=== PATIENT | male | born 1985 | race Caucasian/White ===

== ENCOUNTER → 2017-11-29 | Outpatient (CLI) | payer SELFPAY | END | disposition home or self-care (01) | LOC: LAB DAV 11:55 | DX: N18.6 End stage renal disease (principal) | CPT/HCPCS: 84132 ==

== ENCOUNTER 2022-02-02 07:42 | Inpatient (IN) | payer MEDICARE, OTHER ==
[~2022-02-02] VITALS: Ht 193 cm; Wt 151.1 kg
[2022-02-02 08:34] LABS: BASOPHILS ABSOLUTE AUTO 0.07 K/mm3 (0.00-0.23); BASOPHILS PERCENT AUTO 0 % (0-2); EOSINOPHILS ABSOLUTE AUTO 0.22 K/mm3 (0.00-0.68); EOSINOPHILS PERCENT AUTO 1 % (0-6); Hematocrit 45.9 % (37.0-53.0); Hemoglobin 14.7 g/dL (13.5-17.5); IMMATURE GRAN ABSOLUTE AUTO 0.19 K/mm3 (0.00-0.10); IMMATURE GRAN PERCENT AUTO 1 % (0-1); LYMPHOCYTES ABSOLUTE AUTO 0.44 K/mm3 (0.84-5.20); LYMPHOCYTES PERCENT AUTO 2 % (21-46); MONOCYTES PERCENT AUTO 10 % (4-13); Mean Corpuscular HGB 27.9 pg (26.0-34.0); Mean Corpuscular Volume 87 fL (80-100); Mean Platelet Volume 10.2 fL (9.1-12.4); NEUTROPHILS PERCENT AUTO 85 % (41-73); Platelet Count 367 K/mm3 (150-400); RDW Coefficient Variation 12.7 % (11.7-14.2); RDW Standard Deviation 40.7 fL (35.1-46.3); Red Blood Cell Count 5.26 M/mm3 (4.30-5.90); White Blood Cell Count 19.42 K/mm3 (4.00-11.30)
[2022-02-02] MEDS ORDERED: TACROLIMUS PO (08:43)
[2022-02-02] MEDS ORDERED: CARVEDILOL12.5 MG PO (08:43)
[2022-02-02] MEDS ORDERED: PRED5 PO (08:45)
[2022-02-02] MEDS ORDERED: MYCO250 PO (08:45)
[2022-02-02] MEDS ORDERED: LOSARTAN POTASS25 M2 PO (08:46)
[2022-02-02 08:51] LABS: Albumin, Blood 3.1 g/dL (3.4-5.0); Albumin/Globulin Ratio 0.6 (0.8-1.8); Bilirubin, Total 0.6 mg/dL (0.1-1.0); Bun/Creatinine Ratio 14.9 (12.0-20.0); Calcium, Blood 10.3 mg/dL (8.5-10.1); Creatinine, Blood 1.74 mg/dL (0.60-1.20); Globulin, Blood 4.8 g/dL (2.2-4.0); Potassium, Blood 4.7 mmol/L (3.5-5.5); Total Protein, Blood 7.9 g/dL (6.4-8.2)
[2022-02-02 09:37] LABS: Influenza A, PCR NEGATIVE (NEGATIVE); Influenza B, PCR NEGATIVE (NEGATIVE); Resp Syncytial Virus, PCR NEGATIVE (NEGATIVE)
[2022-02-02 10:13] LABS: SARS-Cov-2 (COVID-19) PCR, MMC POSITIVE (NEGATIVE)
--- NOTE | 2022-02-02 16:44 | NUR ---
SHIFT SUMMARY MR OSHEA WAS ADMITTED FROM THE EMERGENCY DEPARTMENT NEWLY DIAGNOSED WITH COVID PNA. HE STOOD AND TRANSFERED INTO BED WITH STEADY GAIT. ON 3L NC O2 FROM ER. HE DOES HAVE A COUGH AND SAID HE'S BEEN EXPECTORATING SOME CLEAR MUCUS. EXP WHEEZES HEARD. SEEN BY JOAN ELIAS. RIGHT KIDNEY TRANSPLANT WAS 1 YEAR AGO. PT HAS LEFT ARM FISTULA WITH STRONG BRUIT/THRILL. LR 1L IVF INFUSING NOW TO PIV R A/C. HE DENIES PAIN. HE SAID THAT HIS TACROL LEVEL IS OVERDUE WHEN HE GOT IT DRAWN LAST TIME HE HAD ALREADY TAKEN HIS TACROL. MR OSHEA HAS NO NAUSEA AND TOLERATED A HALF SANDWICH AND A DRINK FOR LUNCH, HE SAID HE'S ALREADY STARTING TO FEEL A LOT BETTER. [facility] CASTAÑEDA'S OFFICE TO INFORM OF ADMISSION. BED LOW, CALL LIGHT IN REACH.
--- NOTE | 2022-02-03 04:10 | NUR ---
FITTER PLACER SUMMARY NO ACUTE CHANGES. PT AWAKE INTERMITTANTLY T/O THE NIGHT; REPORTS INSOMNIA. PT ON 3L O2 VIA NC; SATURATION CONSISITANLY >90%; PT IS COUGHING UP THIN CLEAR LIQUIDS. PT ON CONTINUOUS PULSE OX. PT HAVING LONG PERIODS TAHCYCARDIA 100-114 DURING THE FIRST HALF OF SHIFT; THEN CONSISTANTLY IN THE 80-90'S (AFTER FLUIDS FINISHED INFUSING). PT INDEPENDENT IN THE ROOM. CALL LIGHT IN REACH.
[2022-02-03 05:40] LABS: Hematocrit 44.8 % (37.0-53.0); Hemoglobin 14.1 g/dL (13.5-17.5); Mean Corpuscular HGB 27.8 pg (26.0-34.0); Mean Corpuscular HGB Conc 31.5 g/dL (31.5-36.5); Mean Corpuscular Volume 88 fL (80-100); Mean Platelet Volume 10.8 fL (9.1-12.4); Platelet Count 294 K/mm3 (150-400); RDW Coefficient Variation 12.8 % (11.7-14.2); RDW Standard Deviation 41.4 fL (35.1-46.3); Red Blood Cell Count 5.07 M/mm3 (4.30-5.90); White Blood Cell Count 15.05 K/mm3 (4.00-11.30)
[2022-02-03 06:10] LABS: Albumin, Blood 2.7 g/dL (3.4-5.0); Anion Gap 6 mmol/L (6-16); Blood Urea Nitrogen 34 mg/dL (8-24); Bun/Creatinine Ratio 20.2 (12.0-20.0); CO2, Blood 25 mmol/L (21-32); Calcium, Blood 10.9 mg/dL (8.5-10.1); Chloride, Blood 110 mmol/L (98-108); Creatinine, Blood 1.68 mg/dL (0.60-1.20); Glomerular Filtration Rate 54 (60-); Glucose, Blood 171 mg/dL (70-99); Magnesium, Blood 1.9 mg/dL (1.6-2.4); Phosphorus, Blood 3.1 mg/dL (2.5-4.9); Sodium, Blood 141 mmol/L (136-145)
--- NOTE | 2022-02-03 12:33 | NUR ---
AM NOTE MR OSHEA C/O 07/20 HEADACHE THIS MORNING THAT HE IS ASSOCIATING WITH COVID SYMPTOMS. HE HAS DECLINED TYLENOL. ON CONT PULSE OX, SAT IN THE 90S ON 3LNC, BUT DOES GET SOB ON EXERTION. PRODUCTIVE COUGH WITH CLEAR PHLEGM. UP TO SHOWER THIS AM.
--- NOTE | 2022-02-03 16:46 | NUR ---
SHIFT SUMMARY SEE AM NOTE. MR OSHEA HAS BEEN UP INDEPENDENTLY IN HIS ROOM, AND HAS BEEN NAPPING THIS AFTERNOON. REMAINS ON 3L NC O2, SATS IN THE 90S ON CONT PULSE OXIMETER. SOB ON EXERTION. + PRODUCTIVE COUGH. POOR APPETITE AT LUNCH TIME BUT NO C/O NAUSEA. FOOD REQUEST ENTERED FOR SUPPER. HEART RATE HIGH 80S AND 90S OBSERVED ON VIOXX. BED LOW, CALL LIGHT IN REACH.
--- NOTE | 2022-02-04 03:41 | NUR ---
SKIP LOAD DRIVER SUMMARY NO ACUTE CHANGES. PT ON 3L O2/NC. NOTED COARSE LUNG SOUNDS/WEEZE T/O ALL AGUILAR. PT IS COUGHING W/SCANT SPUTUM. NOTED TACHYPNEA/DYSON W/MINIMAL ACTIVITY. PT IS INDEPENDENT IN ROOM. PT REPORTS INCREASED APPETITE THIS EVENING AND REPORTS FEELING BETTER. PT ABLE TO ADVOCATE FOR NEEDS. CALL LIGHT IN REACH.
[2022-02-04 04:51] LABS: BASOPHILS ABSOLUTE AUTO 0.05 K/mm3 (0.00-0.23); BASOPHILS PERCENT AUTO 0 % (0-2); EOSINOPHILS ABSOLUTE AUTO 0.06 K/mm3 (0.00-0.68); EOSINOPHILS PERCENT AUTO 0 % (0-6); Hematocrit 43.7 % (37.0-53.0); Hemoglobin 13.5 g/dL (13.5-17.5); IMMATURE GRAN ABSOLUTE AUTO 0.26 K/mm3 (0.00-0.10); IMMATURE GRAN PERCENT AUTO 1 % (0-1); LYMPHOCYTES ABSOLUTE AUTO 0.25 K/mm3 (0.84-5.20); LYMPHOCYTES PERCENT AUTO 1 % (21-46); MONOCYTES ABSOLUTE AUTO 1.75 K/mm3 (0.16-1.47); MONOCYTES PERCENT AUTO 9 % (4-13); Mean Corpuscular HGB 27.8 pg (26.0-34.0); Mean Corpuscular HGB Conc 30.9 g/dL (31.5-36.5); Mean Corpuscular Volume 90 fL (80-100); Mean Platelet Volume 10.3 fL (9.1-12.4); NEUTROPHILS ABSOLUTE AUTO 18.11 K/mm3 (1.96-9.15); NEUTROPHILS PERCENT AUTO 89 % (41-73); Platelet Count 318 K/mm3 (150-400); RDW Coefficient Variation 12.8 % (11.7-14.2); RDW Standard Deviation 42.1 fL (35.1-46.3); Red Blood Cell Count 4.85 M/mm3 (4.30-5.90); White Blood Cell Count 20.48 K/mm3 (4.00-11.30)
[2022-02-04 05:14] LABS: Albumin, Blood 2.6 g/dL (3.4-5.0); Anion Gap 4 mmol/L (6-16); Blood Urea Nitrogen 36 mg/dL (8-24); Bun/Creatinine Ratio 23.5 (12.0-20.0); CO2, Blood 25 mmol/L (21-32); Calcium, Blood 10.6 mg/dL (8.5-10.1); Chloride, Blood 110 mmol/L (98-108); Creatinine, Blood 1.53 mg/dL (0.60-1.20); Glomerular Filtration Rate 60 (60-); Glucose, Blood 151 mg/dL (70-99); Phosphorus, Blood 2.5 mg/dL (2.5-4.9); Potassium, Blood 4.7 mmol/L (3.5-5.5); Sodium, Blood 139 mmol/L (136-145)
--- NOTE | 2022-02-04 08:45 | NUR ---
RN NOTE PT HAS AUDITORY INSP/EXP WHEEZES. STILL HAS COUGH, SAID IT'S NOT WORSE. RESP RATE MID 20S. RT CALLED, MESSAGE LEFT. PT TALKING IN FULL SENTENCE. O2 SAT IN THE 90S ON 3L NC. HE SAID HE GETS SOB WITH ACTIVITY OR LYING FLAT.
--- NOTE | 2022-02-04 16:58 | NUR ---
SHIFT SUMMARY MR OSHEA HAS A STRONG MOIST COUGH, EXPECTORATING CLEAR BUBBLY SPUTUM. GIVEN SPECIMEN CUP FOR SPUTUM SAMPLE. HE SAID HE FEELS "ABOUT THE SAME". HE GETS SOB ON EXERTION. HE IS MOVING ABOUT IN HIS ROOM AND TO THE BATHROOM. NO C/O PAIN. IV ANTIBIOTICS PER JUL.
--- NOTE | 2022-02-05 03:51 | NUR ---
OFFICE MACHINE INSTALLER SUMMARY NO ACUTE CHANGES. PT IS ON 3L O2 NC; SATURATIONS STAYING ABOVE 90%. CONTINUING TO EXPERIENCE EPISODED OF TACHYPNEA AND TACHYCARDIA. REPORTS FEELING LIKE HE CAN NOT TAKE A DEEP BREATH INTO THE BASES OF LUNGS. PROVIDED INCETIVE SPIROMETER AND EDUCATION FOR USE. CONTINUING TO HAVE WATERY/FROTHY CLEAR SPUTUM; CUP IS AT BEDSIDE FOR SPUTUM CULTURE. CALL LIGHT IN REACH.
[2022-02-05 05:17] LABS: BASOPHILS ABSOLUTE AUTO 0.04 K/mm3 (0.00-0.23); BASOPHILS PERCENT AUTO 0 % (0-2); EOSINOPHILS ABSOLUTE AUTO 0.13 K/mm3 (0.00-0.68); EOSINOPHILS PERCENT AUTO 1 % (0-6); Hematocrit 44.6 % (37.0-53.0); Hemoglobin 13.5 g/dL (13.5-17.5); IMMATURE GRAN ABSOLUTE AUTO 0.45 K/mm3 (0.00-0.10); IMMATURE GRAN PERCENT AUTO 3 % (0-1); LYMPHOCYTES ABSOLUTE AUTO 0.31 K/mm3 (0.84-5.20); LYMPHOCYTES PERCENT AUTO 2 % (21-46); MONOCYTES ABSOLUTE AUTO 1.34 K/mm3 (0.16-1.47); MONOCYTES PERCENT AUTO 8 % (4-13); Mean Corpuscular HGB 27.3 pg (26.0-34.0); Mean Corpuscular HGB Conc 30.3 g/dL (31.5-36.5); Mean Corpuscular Volume 90 fL (80-100); Mean Platelet Volume 10.6 fL (9.1-12.4); NEUTROPHILS ABSOLUTE AUTO 14.61 K/mm3 (1.96-9.15); NEUTROPHILS PERCENT AUTO 87 % (41-73); Platelet Count 336 K/mm3 (150-400); RDW Coefficient Variation 12.8 % (11.7-14.2); RDW Standard Deviation 41.8 fL (35.1-46.3); Red Blood Cell Count 4.95 M/mm3 (4.30-5.90); White Blood Cell Count 16.88 K/mm3 (4.00-11.30)
[2022-02-05 05:44] LABS: Albumin, Blood 2.5 g/dL (3.4-5.0); Anion Gap 6 mmol/L (6-16); Blood Urea Nitrogen 31 mg/dL (8-24); Bun/Creatinine Ratio 20.3 (12.0-20.0); CO2, Blood 26 mmol/L (21-32); Calcium, Blood 10.2 mg/dL (8.5-10.1); Chloride, Blood 109 mmol/L (98-108); Creatinine, Blood 1.53 mg/dL (0.60-1.20); Glomerular Filtration Rate 60 (60-); Glucose, Blood 192 mg/dL (70-99); Phosphorus, Blood 3.2 mg/dL (2.5-4.9); Potassium, Blood 4.8 mmol/L (3.5-5.5); Sodium, Blood 141 mmol/L (136-145)
--- NOTE | 2022-02-05 18:06 | NUR ---
SHIFT SUMMARY: PT A&O, PLEASANT AND COOPERATIVE. PT WALKING IN THE ROOM INDEPENDANTLY AND REPOSTIONING OFTEN. PT SEEN BY DR. JORDAN WITH A NEW ORDER OF REMDESIVIR IV. PT HAD NO COMPLAINTS OF PAIN OR DISCOMFORT. PT IS SCHEDULED FOR XRAYS 02/06/22. PT IN BED WITH CALL LIGHT WITHIN REACH.
--- NOTE | 2022-02-05 18:32 | NUR ---
THIS DRY FOOD PRODUCTS MIXER HAS REVIEWED ALL NOTES AND ASSESSMENTS BY ANNE MARIE NOLEN AND AGREES WITH THEM.
--- NOTE | 2022-02-06 04:38 | NUR ---
SHIFT SUMMARY PATIENT DENIES PAIN AND NAUSEA. PATIENT REPORTS SHORTNESS OF BREATH WITH ACTIVITY. PATIENT ON 2L VIA N/C. PAITENT MAINTAINING SATS ABOVE 90%. PATIENT HAS SNACK BEFORE BED. EATING AND DRINKING WELL. PATIENT SLEPT ON AND OFF THIS SHIFT. CHEST XRAY ORDERED FOR THIS MORNING. PATIENT IS IND IN ROOM. PATIENT IS PLEASANT AND COOPERATIVE WITH CARE.
[2022-02-06 06:45] LABS: Hematocrit 45.6 % (37.0-53.0); Hemoglobin 14.2 g/dL (13.5-17.5); Mean Corpuscular HGB 27.8 pg (26.0-34.0); Mean Corpuscular HGB Conc 31.1 g/dL (31.5-36.5); Mean Corpuscular Volume 89 fL (80-100); Mean Platelet Volume 10.4 fL (9.1-12.4); Platelet Count 327 K/mm3 (150-400); RDW Coefficient Variation 12.5 % (11.7-14.2); White Blood Cell Count 13.87 K/mm3 (4.00-11.30)
[2022-02-06 07:11] LABS: Albumin, Blood 2.5 g/dL (3.4-5.0); Anion Gap 6 mmol/L (6-16); Blood Urea Nitrogen 34 mg/dL (8-24); Bun/Creatinine Ratio 22.2 (12.0-20.0); CO2, Blood 27 mmol/L (21-32); Calcium, Blood 10.3 mg/dL (8.5-10.1); Chloride, Blood 108 mmol/L (98-108); Creatinine, Blood 1.53 mg/dL (0.60-1.20); Glomerular Filtration Rate 60 (60-); Glucose, Blood 130 mg/dL (70-99); Phosphorus, Blood 3.3 mg/dL (2.5-4.9); Potassium, Blood 4.5 mmol/L (3.5-5.5); Sodium, Blood 141 mmol/L (136-145)
[2022-02-06 07:36] LABS: BAND PERCENT MAN 4 % (0-8); BASOPHILS PERCENT MAN 0 % (0-2); EOSINOPHILS PERCENT MAN 0 % (0-6); LYMPHOCYTES ABSOLUTE MAN 0.55 K/mm3 (0.84-5.20); LYMPHOCYTES PERCENT MAN 4 % (21-46); METAMYELOCYTE ABSOLUTE MAN 0.27 K/mm3 (0.00-0.00); METAMYELOCYTE PERCENT MAN 2 % (0-0); MONOCYTES PERCENT MAN 8 % (4-13); NEUTROPHILS ABSOLUTE MAN 11.92 K/mm3 (1.96-9.15); SEG NEUTROPHILS PERCENT MAN 82 % (41-73); TOTAL CELLS COUNTED 100
--- NOTE | 2022-02-06 13:20 | NUR ---
NURSE NOTE: PT O2 TITRATED DOWN TO 1L NC O2 STABLE AT 95%.
--- NOTE | 2022-02-06 18:12 | NUR ---
SHIFT SUMMARY: PT A&O, PLEASANT AND COOPERATIVE. PT HAS HAD NO COMPLAINTS OF SOB, CHEST PAIN, OR DISCOMFORT. PT TIRATED DOWN TO ROOM AIR WITH STABLE O2 SATS 94%. PT HAS ORDERS FOR HOME O2 EVALUATION ONCE PT O2 LEVELS STABLE AT RA. PT IN BED WTH CALL LIGHT WITHIN REACH.
--- NOTE | 2022-02-06 18:25 | NUR ---
THIS STORES LABORER HAS REVIEWED ALL NOTES AND ASSESSMENTS BY ANNE MARIE NOLEN AND AGREES WITH THEM.
--- NOTE | 2022-02-07 05:30 | NUR ---
SHIFT SUMMARY PATIENT DENIES PAIN, NAUSEA, AND SHORTNESS OF BREATH AT REST. REPORTS SOME SHORTNESS OF BREATH WITH ACTIVITY. PATIENT ON RA ENTIRE SHIFT, MAINTAINING SATS ABOVE 90%. PATIENT IS IND IN ROOM. PATIENT IS EAGER TO GO HOME. PATIENT HAD A SNACK BEFORE BED, EATING AND DRINKING WELL. PATIENT IS PLEASANT AND COOPERATIVE WITH CARE.
[2022-02-07] MEDS ORDERED: DECADRON6 M1 PO (13:32)
[2022-02-07] MEDS ORDERED: ACET325 PO (13:33)
--- NOTE | 2022-02-07 15:40 | NUR ---
DISCHARGE INSTRUCTIONS COMPLETED AND DISCUSSED WITH PT EXPRESSING UNDERSTANDING. SCRIPT FAXED TO [facility]. FAXED INFO TO [facility] FOR CHEST CT. TO [facility] VIA W/C AND DRIVING HIMSELF HOME.
== END 2022-02-07 14:20 | disposition home or self-care (01) | DRG 871 ==
LOC: ER 07:42 → MEDS 10:17
PROVIDERS: Emergency Medicine; Family Medicine; ADMIT Internal Medicine
PROC: 8E0ZXY6 Isolation (ICD-10-PCS; principal; 2022-02-02)
PROC: 3E03329 Introduction of Other Anti-infective into Peripheral Vein, Percutaneous Approach (ICD-10-PCS; 2022-02-02)
PROC: 3E0DX3Z Introduction of Anti-inflammatory into Mouth and Pharynx, External Approach (ICD-10-PCS; 2022-02-03)
PROC: XW033E5 Introduction of Remdesivir Anti-infective into Peripheral Vein, Percutaneous Approach, New Technology Group 5 (ICD-10-PCS; 2022-02-05)
DX: A41.9 Sepsis, unspecified organism (principal); J18.9 Pneumonia, unspecified organism; J96.01 Acute respiratory failure with hypoxia; U07.1 COVID-19; T86.12 Kidney transplant failure; R65.20 Severe sepsis without septic shock; Z79.899 Other long term (current) drug therapy; N18.30 Chronic kidney disease, stage 3 unspecified; D72.828 Other elevated white blood cell count; E88.09 Other disorders of plasma-protein metabolism, not elsewhere classified; E83.52 Hypercalcemia
CPT/HCPCS: 0241U; 36415; 71045; 80053; 80069; 83605; 83735; 83880; 84145; 84484; 85025; 85027; 87040; 93005; 93010; 94640; 94664; 94760; 94761; 94762; 96365; 96366; 96367; 96375; 99285-25; A9270; J0248; J0456; J0692; J0696; J1650; J2930; J7030; J7050; J7120; J7507; J7517

== ENCOUNTER 2023-11-28 09:58 | Emergency (ER) | payer OTHER ==
[~2023-11-28] VITALS: Ht 193 cm; Wt 140.6 kg
[~2023-11-28 09:58] MED LIST: ACET325 PO; CARVEDILOL12.5 MG PO; DECADRON6 M1 PO; LOSARTAN POTASS25 M2 PO; MYCO250 PO; PRED5 PO; TACROLIMUS PO
[2023-11-28 10:09] VITALS: BP 154/101
[2023-11-28] MEDS ORDERED: Dexamethasone Sod Phos 10 MG/ML 1ML VIAL PO ONE (11:05)
[2023-11-28] MEDS ORDERED: Amoxicillin500 MG PO (11:05)
[2023-11-28] MEDS ORDERED: Amoxicillin 500 MG Cap PO ONE (11:05)
== END 2023-11-28 11:25 | disposition home or self-care (01) ==
LOC: ER 09:58
DX: K04.7 Periapical abscess without sinus (principal); Z79.52 Long term (current) use of systemic steroids; Z79.899 Other long term (current) drug therapy
CPT/HCPCS: 99282; A9270; J1100

== ENCOUNTER 2025-04-06 14:25 | Inpatient (IN) | payer OTHER ==
[~2025-04-06] VITALS: Ht 193 cm; Wt 162.6 kg
[~2025-04-06 14:25] MED LIST changes: +Amoxicillin500 MG PO
[2025-04-06 15:28] LABS: Source, Urine Clean Catch
[2025-04-06 15:39] LABS: Influenza A, PCR NEGATIVE (NEGATIVE); Influenza B, PCR NEGATIVE (NEGATIVE); Resp Syncytial Virus, PCR NEGATIVE (NEGATIVE); SARS-Cov-2 (COVID-19) PCR, MMC NEGATIVE (NEGATIVE)
[2025-04-06 15:40] LABS: Bilirubin, Urine Neg (Neg); Color, Urine Yellow (P-Yellow); Glucose Qualitative, Urine Neg (Neg); Ketones, Urine Neg (Neg); Leukocyte Esterase, Urine 3+ (Neg); Protein, Urine 3+ (Neg); Specific Gravity, Urine 1.010 (1.003-1.022); Urobilinogen, Urine NORM (Normal)
[2025-04-06 15:53] LABS: Red Blood Cells, Urine 25-50 /hpf (0-2)
[2025-04-06 15:54] LABS: White Blood Cells, Urine 50-100 /hpf (0-5)
[2025-04-06 17:21] LABS: BASOPHILS ABSOLUTE AUTO 0.09 K/mm3 (0.00-0.23); BASOPHILS PERCENT AUTO 0 % (0-2); EOSINOPHILS ABSOLUTE AUTO 0.00 K/mm3 (0.00-0.68); EOSINOPHILS PERCENT AUTO 0 % (0-6); Hematocrit 41.5 % (37.0-53.0); Hemoglobin 13.9 g/dL (13.5-17.5); IMMATURE GRAN ABSOLUTE AUTO 0.26 K/mm3 (0.00-0.10); IMMATURE GRAN PERCENT AUTO 1 % (0-1); LYMPHOCYTES ABSOLUTE AUTO 0.77 K/mm3 (0.84-5.20); LYMPHOCYTES PERCENT AUTO 3 % (21-46); MONOCYTES ABSOLUTE AUTO 1.90 K/mm3 (0.16-1.47); MONOCYTES PERCENT AUTO 7 % (4-13); Mean Corpuscular HGB Conc 33.5 g/dL (31.5-36.5); Mean Corpuscular Volume 85 fL (80-100); NEUTROPHILS ABSOLUTE AUTO 23.95 K/mm3 (1.96-9.15); NEUTROPHILS PERCENT AUTO 89 % (41-73); NRBC ABSOLUTE 0.00 K/mm3 (0.00-0.02); NRBC Auto 0.0 /100 WBC (0.0-0.2); Platelet Count 197 K/mm3 (150-400); RDW Coefficient Variation 12.6 % (11.7-14.2); RDW Standard Deviation 38.4 fL (35.1-46.3)
[2025-04-06 17:56] LABS: Alanine Aminotransfer (ALT/SGP 28.0 U/L (12-78); Albumin, Blood 3.2 g/dL (3.4-5.0); Albumin/Globulin Ratio 0.8 (0.8-1.8); Anion Gap 10.0 mmol/L (3-11); Aspartate Aminotrans (AST/SGOT 10.0 U/L (12-37); Bilirubin, Total 0.6 mg/dL (0.1-1.0); Blood Urea Nitrogen 28.0 mg/dL (8-24); CO2, Blood 23.0 mmol/L (21-32); Calcium, Blood 9.9 mg/dL (8.5-10.1); Chloride, Blood 105.0 mmol/L (98-108); Creatinine, Blood 2.13 mg/dL (0.60-1.20); Globulin, Blood 4.0 g/dL (2.2-4.0); Glucose, Blood 228.0 mg/dL (70-99); Potassium, Blood 3.8 mmol/L (3.5-5.5); Sodium, Blood 134.0 mmol/L (136-145); Total Protein, Blood 7.2 g/dL (6.4-8.2)
[2025-04-06] MEDS ORDERED: NS 1,000 ML IV SCH (19:00)
[2025-04-06] MEDS ORDERED: Ondansetron HCl 2 MG / ML 2ML Vial IV PRN (19:00)
[2025-04-06] MEDS ORDERED: FLU VACC TS2025-26(6MOS UP)/PF 45 MCG/0.5 ML SYRINGE IM SCH (19:00)
[2025-04-06] MEDS ORDERED: Labetalol HCL 5 MG/ML 4ML Injection (Single Dose) IV PRN (19:10)
[2025-04-06] MEDS ORDERED: Piperacillin/Tazobactam Sod 3.375 GM in NS 100 ML IV SCH (19:30)
--- NOTE | 2025-04-06 20:36 | NUR ---
RECIEVED REPORT ON PT COMING TO [id number] FROM ANNE MARIE SIDHU IN ER. AWAITING PT ARRIVAL.
[2025-04-06] MEDS ORDERED: Lactobacil 2-S.Thermo-Bifido 1 1 Cap PO SCH (21:00)
[2025-04-06] MEDS ORDERED: THERA-D2000 UNIT PO (21:06)
[2025-04-06] MEDS ORDERED: MAGNESIUM OXID500 MG PO (21:07)
[2025-04-06 21:18] VITALS: BP 156/72
--- NOTE | 2025-04-06 21:45 | NUR ---
ADMISSION NOTE PT ARRIVED VIA GURNEY FROM THE ED, PT AMBULATED INDEPENDENTLY TO HOSPITAL BED. PT IS A&OX4, PLEASANT AND COOPERATIVE WITH CARE. PT PROVIDED WITH JUICE AND FOOD. PT ORIENTED TO ROOM, STAFF, AND CALL LIGHT. BED IS IN THE LOWEST POSITION, AND CALL LIGHT IS WITHIN REACH.
[2025-04-07 03:23] VITALS: BP 146/78
[2025-04-07 04:28] LABS: BASOPHILS ABSOLUTE AUTO 0.05 K/mm3 (0.00-0.23); BASOPHILS PERCENT AUTO 0 % (0-2); EOSINOPHILS ABSOLUTE AUTO 0.00 K/mm3 (0.00-0.68); EOSINOPHILS PERCENT AUTO 0 % (0-6); Hematocrit 39.7 % (37.0-53.0); Hemoglobin 13.1 g/dL (13.5-17.5); IMMATURE GRAN ABSOLUTE AUTO 0.14 K/mm3 (0.00-0.10); IMMATURE GRAN PERCENT AUTO 1 % (0-1); LYMPHOCYTES ABSOLUTE AUTO 0.64 K/mm3 (0.84-5.20); LYMPHOCYTES PERCENT AUTO 3 % (21-46); MONOCYTES ABSOLUTE AUTO 1.48 K/mm3 (0.16-1.47); MONOCYTES PERCENT AUTO 7 % (4-13); Mean Corpuscular HGB Conc 33.0 g/dL (31.5-36.5); Mean Corpuscular Volume 87 fL (80-100); NEUTROPHILS ABSOLUTE AUTO 18.48 K/mm3 (1.96-9.15); NEUTROPHILS PERCENT AUTO 89 % (41-73); NRBC ABSOLUTE 0.00 K/mm3 (0.00-0.02); NRBC Auto 0.0 /100 WBC (0.0-0.2); Platelet Count 163 K/mm3 (150-400); RDW Coefficient Variation 12.8 % (11.7-14.2); RDW Standard Deviation 40.2 fL (35.1-46.3)
[2025-04-07 04:46] LABS: Alanine Aminotransfer (ALT/SGP 27.0 U/L (12-78); Albumin, Blood 2.7 g/dL (3.4-5.0); Albumin/Globulin Ratio 0.6 (0.8-1.8); Anion Gap 10.0 mmol/L (3-11); Aspartate Aminotrans (AST/SGOT 10.0 U/L (12-37); Bilirubin, Total 0.6 mg/dL (0.1-1.0); Blood Urea Nitrogen 28.0 mg/dL (8-24); CO2, Blood 24.0 mmol/L (21-32); Calcium, Blood 9.0 mg/dL (8.5-10.1); Chloride, Blood 105.0 mmol/L (98-108); Creatinine, Blood 2.45 mg/dL (0.60-1.20); Globulin, Blood 4.2 g/dL (2.2-4.0); Glucose, Blood 220.0 mg/dL (70-99); Potassium, Blood 3.9 mmol/L (3.5-5.5); Sodium, Blood 135.0 mmol/L (136-145); Total Protein, Blood 6.9 g/dL (6.4-8.2)
--- NOTE | 2025-04-07 05:15 | NUR ---
SHIFT SUMMARY PT IS A&0X4, PLEASANT AND COOPERATIVE WITH CARE. PT WAS ADMITTED THIS SHIFT FROM THE ER FOR SEPSIS WITH UTI. NO ACUTE CHANGES SINCE ADMIT NOTE. PT HAS A FISTULA TO THE L ARM. HOWEVER PT NO LONGER RECIEVES HD. PT IS RECIEVING ZOSYN Q6. PT ATTEMPTED TO REST T/O SHIFT. EVEN AND UNLABORED RESPIRATION, BED IN THE LOWEST POSITION, AND CALL LIGHT WITHIN REACH.
[2025-04-07 07:51] VITALS: BP 152/79
[2025-04-07] MEDS ORDERED: Enoxaparin 40 MG/0.4 ML SYR SC SCH (09:00)
[2025-04-07 16:00] VITALS: BP 121/67
--- NOTE | 2025-04-07 18:42 | NUR ---
SHIFT SUMMARY- PT IS IMPROVING, HE THOUGHT HE MIGHT GO HOME TODAY, HOWEVER DR CAME TO ROUND ON HIM TODAY AND THEY DISCUSSED THE PT RENAL FUNCTION. DR COURTNEY WAS CONSULTED. NEW TESTS AND IMAGES ORDERED. PT TO CONTINUE WITH MAINTENANCE FLUIDS AT 150ML/HR AT THIS TIME. PT ALERT, ORIENTED AND INDEOPENDENT IN THE ROOM, NO S&S OF DISTRESS NOTED. WILL PASS ON TO NIGHT RN IN BEDSIDE REPORT. M
[2025-04-07 19:42] VITALS: BP 113/54
[2025-04-08 03:53] VITALS: BP 163/97
--- NOTE | 2025-04-08 04:49 | NUR ---
ROLL SETTER SUMMARY NO ACUTE CHANGES. PT INDEPENDENT IN THE ROOM. FLUIDS RUNNING AT 150MLS PER HOUR. PT A/OX4. ABLE TO MAKE NEEDS KNOWN. CALL LIGHT ACCESSBILE. REGULAR INTERVAL ROUNDING AND CARE ONGOING.
[2025-04-08 05:09] LABS: BASOPHILS ABSOLUTE AUTO 0.04 K/mm3 (0.00-0.23); BASOPHILS PERCENT AUTO 0 % (0-2); EOSINOPHILS ABSOLUTE AUTO 0.04 K/mm3 (0.00-0.68); EOSINOPHILS PERCENT AUTO 0 % (0-6); Hematocrit 36.1 % (37.0-53.0); Hemoglobin 12.0 g/dL (13.5-17.5); IMMATURE GRAN ABSOLUTE AUTO 0.09 K/mm3 (0.00-0.10); IMMATURE GRAN PERCENT AUTO 1 % (0-1); LYMPHOCYTES ABSOLUTE AUTO 0.56 K/mm3 (0.84-5.20); LYMPHOCYTES PERCENT AUTO 5 % (21-46); MONOCYTES ABSOLUTE AUTO 1.18 K/mm3 (0.16-1.47); MONOCYTES PERCENT AUTO 10 % (4-13); Mean Corpuscular HGB Conc 33.2 g/dL (31.5-36.5); Mean Corpuscular Volume 87 fL (80-100); NEUTROPHILS ABSOLUTE AUTO 9.94 K/mm3 (1.96-9.15); NEUTROPHILS PERCENT AUTO 84 % (41-73); NRBC ABSOLUTE 0.00 K/mm3 (0.00-0.02); NRBC Auto 0.0 /100 WBC (0.0-0.2); Platelet Count 155 K/mm3 (150-400); RDW Coefficient Variation 12.9 % (11.7-14.2); RDW Standard Deviation 41.2 fL (35.1-46.3)
[2025-04-08 05:31] LABS: Albumin, Blood 2.4 g/dL (3.4-5.0); Anion Gap 10 mmol/L (3-11); Blood Urea Nitrogen 27 mg/dL (8-24); CO2, Blood 20 mmol/L (21-32); Calcium, Blood 9.5 mg/dL (8.5-10.1); Chloride, Blood 113 mmol/L (98-108); Creatinine, Blood 2.30 mg/dL (0.60-1.20); Glucose, Blood 183 mg/dL (70-99); Phosphorus, Blood 1.9 mg/dL (2.5-4.9); Potassium, Blood 3.8 mmol/L (3.5-5.5); Sodium, Blood 139 mmol/L (136-145)
[2025-04-08 07:50] VITALS: BP 148/95
[2025-04-08 16:09] VITALS: BP 142/89
[2025-04-08 19:10] VITALS: BP 152/99
--- NOTE | 2025-04-08 20:24 | NUR ---
SHIFT SUMMARY- PT HAS HAD NO ACUTE CHANGE T/O THE SHIFT. BEDSIDE REPORT COMPLETED WITH NIGHT RN, PT IN BED, CALL LIGHT IN REACH NO S&S OF DISTRESS NOTED. ALERT, ORIENTED AND INDEPENDENT IN THE ROOM.
[2025-04-09 05:11] VITALS: BP 163/101
[2025-04-09 05:19] LABS: Source, Urine Voided
[2025-04-09 05:36] LABS: Bilirubin, Urine Neg (Neg); Color, Urine Yellow (P-Yellow); Glucose Qualitative, Urine Neg (Neg); Ketones, Urine Neg (Neg); Leukocyte Esterase, Urine 1+ (Neg); Protein, Urine 2+ (Neg); Specific Gravity, Urine 1.010 (1.003-1.022); Urobilinogen, Urine NORM (Normal)
[2025-04-09 05:56] VITALS: BP 156/99
[2025-04-09 05:58] LABS: White Blood Cells, Urine 0-2 /hpf (0-5)
--- NOTE | 2025-04-09 06:16 | NUR ---
ACCOUNTANT CERTIFIED PUBLIC SUMMARY NO ACUTE CHANGES. NEW URINE SAMPLE COLLECTED AND SENT TO LAB THIS MORNING PER ORDER. CONT FLUIDS AND ABOX GIVEN ORDERED. PT IS HTN. SYSTOLIC GREATER THAN 160 WITH AM VITALS. THIS RN RECHECK PRIOR TO GIVING PRN AND SYSTOLIC DROPPED INTO THE 150'S. 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 CALL LIGHT ACCESSIBLE. PT MAKING NEEDS KNOWN. REGULAR INTERVAL ROUNDING AND CARE ONGOING.
[2025-04-09 08:02] VITALS: BP 186/102
[2025-04-09 10:48] LABS: BASOPHILS ABSOLUTE AUTO 0.02 K/mm3 (0.00-0.23); BASOPHILS PERCENT AUTO 0 % (0-2); EOSINOPHILS ABSOLUTE AUTO 0.07 K/mm3 (0.00-0.68); EOSINOPHILS PERCENT AUTO 1 % (0-6); Hematocrit 37.7 % (37.0-53.0); Hemoglobin 11.8 g/dL (13.5-17.5); IMMATURE GRAN ABSOLUTE AUTO 0.06 K/mm3 (0.00-0.10); IMMATURE GRAN PERCENT AUTO 1 % (0-1); LYMPHOCYTES ABSOLUTE AUTO 0.52 K/mm3 (0.84-5.20); LYMPHOCYTES PERCENT AUTO 6 % (21-46); MONOCYTES ABSOLUTE AUTO 0.78 K/mm3 (0.16-1.47); MONOCYTES PERCENT AUTO 9 % (4-13); Mean Corpuscular HGB Conc 31.3 g/dL (31.5-36.5); Mean Corpuscular Volume 90 fL (80-100); NEUTROPHILS ABSOLUTE AUTO 7.35 K/mm3 (1.96-9.15); NEUTROPHILS PERCENT AUTO 84 % (41-73); NRBC ABSOLUTE 0.00 K/mm3 (0.00-0.02); NRBC Auto 0.0 /100 WBC (0.0-0.2); Platelet Count 188 K/mm3 (150-400); RDW Coefficient Variation 13.0 % (11.7-14.2); RDW Standard Deviation 42.6 fL (35.1-46.3)
[2025-04-09 11:07] LABS: Albumin, Blood 2.3 g/dL (3.4-5.0); Anion Gap 9 mmol/L (3-11); Blood Urea Nitrogen 25 mg/dL (8-24); CO2, Blood 21 mmol/L (21-32); Calcium, Blood 9.1 mg/dL (8.5-10.1); Chloride, Blood 114 mmol/L (98-108); Creatinine, Blood 2.14 mg/dL (0.60-1.20); Glucose, Blood 177 mg/dL (70-99); Phosphorus, Blood 1.8 mg/dL (2.5-4.9); Potassium, Blood 3.9 mmol/L (3.5-5.5); Sodium, Blood 140 mmol/L (136-145)
[2025-04-09 11:40] VITALS: BP 157/97
[2025-04-09] MEDS ORDERED: MAGNESIUM250 MG PO (11:42)
[2025-04-09 16:08] VITALS: BP 133/75
[2025-04-09] MEDS ORDERED: Potassium Phos/Sodium Phos 250 MG PACK PO SCH (17:00)
--- NOTE | 2025-04-09 17:16 | NUR ---
SHIFT SUMMARY- PT ALERT, ORIENTED AND INDEPENDENT IN THE ROOM. PT HAS FREQUENCY AND URGENCY AND USES THE URINAL FOR VOIDS TO PREVENT INCONTINENCE. PT WAITING FOR CULTURE AND SENSITIVITY, (SHOULD BE BACK TOMORROW AM PER MICRO) PT TO DC HOME AFTER THE RESULT WITH PO ABX. DR COURTNEY DC'D IVF. BP ELEVATED TODAY MD AWARE MEDS BEING ADJUSTED. PT IS CURRENTLY IN BED, CALL LIGHT IN REACH NO S&S OF DISTRESS NOTED.
[2025-04-09 19:55] VITALS: BP 147/89
[2025-04-10 04:46] VITALS: BP 160/99
--- NOTE | 2025-04-10 05:37 | NUR ---
LGSW SUMMARY NO ACUTE CHANGES. PT CONTINUES TO BE HYPERTENSIVE. ABOX GIVEN SCHEDULED. PT INDEPENDENT IN THE ROOM. PT TO DICHARGE PENDING FINAL URINE CULTURE. PT ABLE TO MAKE NEEDS KNOWN. REGULAR INTERVAL ROUNDING AND CARE ONGOING.
[2025-04-10 05:54] LABS: Alanine Aminotransfer (ALT/SGP 35.0 U/L (12-78); Albumin, Blood 2.7 g/dL (3.4-5.0); Albumin/Globulin Ratio 0.7 (0.8-1.8); Anion Gap 8.0 mmol/L (3-11); Aspartate Aminotrans (AST/SGOT 13.0 U/L (12-37); Bilirubin, Total 0.3 mg/dL (0.1-1.0); Blood Urea Nitrogen 22.0 mg/dL (8-24); CO2, Blood 23.0 mmol/L (21-32); Calcium, Blood 9.3 mg/dL (8.5-10.1); Chloride, Blood 114.0 mmol/L (98-108); Creatinine, Blood 2.12 mg/dL (0.60-1.20); Globulin, Blood 3.8 g/dL (2.2-4.0); Glucose, Blood 148.0 mg/dL (70-99); Phosphorus, Blood 3.0 mg/dL (2.5-4.9); Potassium, Blood 3.9 mmol/L (3.5-5.5); Sodium, Blood 141.0 mmol/L (136-145); Total Protein, Blood 6.5 g/dL (6.4-8.2)
[2025-04-10 07:46] VITALS: BP 159/97
[2025-04-10] MEDS ORDERED: AMLO5 PO (11:49)
[2025-04-10] MEDS ORDERED: DOXY100 PO (11:50)
[2025-04-10] MEDS ORDERED: VISBIOME 112.51 EACH PO (11:50)
--- NOTE | 2025-04-10 12:34 | NUR ---
DAY SHIFT/DISCHARGE SUMMARY: PATIENT DENIES CP/PRESSURE, SOB, N/V AND DIZZINESS. PATIENT RECEIVED SCHEDULED MEDS PER EMAR. VITALS SIGNS REVIEWED. PATIENT HAS HAD NO COMPLAINTS OR DENIES NEW CONCERN THIS SHIFT. PATIENT HAS GREAT APPETITE, CONTINENT OF BAB, INDEPENDENT IN ROOM. PATIENT A/OX4, PLEASANT AND COOPERATIVE c CARE. PIV DC'D PATIENT DISCHARGE HOME. DISCHARGE INSTRUCTIONS PACKET GIVEN TO PATIENT. PATIENT EDUCATED ON ADMITTING DX'S OF SEPSIS SECONDARY TO UTI, S/S, TX, NEW RX AND TO F/U c PCP AND NEPHROLOGY. PATIENT VERBALIZED UNDERSTANDING c NO FURTHER QUESTIONS. RX WAS FAXED TO PATIENT PREFERRED PHARMACY[facility]. ALL PERSONAL BELONGINGS WERE SENT c PATIENT. PATIENT DECLINE W/C TRANSPORT, LEFT THE ROOM AT 1225.
[2025-04-13 07:16] LABS: BK QNT BY NAAT, PLAS LOG IU/ML Not Detected; BK QNT BY NAAT, PLASMA INTERP Not Detected (Not Detected); BK QNT BY NAAT, PLASMA IU/ML Not Detected
== END 2025-04-10 12:25 | disposition home or self-care (01) | DRG 872 ==
LOC: ER 14:25 → MEDS 18:57
PROVIDERS: Hospitalist; Internal Medicine; Nurse Practitioner Acute Care; Physician Assistant; ADMIT Student in an Organized Health Care Education/Training Program
DX: A41.1 Sepsis due to other specified staphylococcus (principal); T86.19 Other complication of kidney transplant; N17.9 Acute kidney failure, unspecified; E87.1 Hypo-osmolality and hyponatremia; Z68.41 Body mass index [BMI] 40.0-44.9, adult; R65.20 Severe sepsis without septic shock; N18.30 Chronic kidney disease, stage 3 unspecified; R00.0 Tachycardia, unspecified; N30.90 Cystitis, unspecified without hematuria; I12.9 Hypertensive chronic kidney disease with stage 1 through stage 4 chronic kidney disease, or unspecified chronic kidney disease; E66.01 Morbid (severe) obesity due to excess calories; Z79.52 Long term (current) use of systemic steroids; Z79.2 Long term (current) use of antibiotics; Z79.621 Long term (current) use of calcineurin inhibitor; Z79.69 Long term (current) use of other immunomodulators and immunosuppressants
CPT/HCPCS: 36415; 71045; 76776; 80053; 80069; 81001; 83605; 83690; 84100; 85025; 87040; 87077; 87086; 87186; 87637; 87799; 99285-25; A9270; J2543; J7030; J7120; J7507; J7512; J7517